=== PATIENT | female | born 1980 | race Caucasian/White ===

== ENCOUNTER → 2023-12-09 08:06 | Outpatient (REF) | payer OTHER, SELFPAY | LOC: WDC 08:06 | PROVIDERS: ATTENDING PHYSICIAN Nurse Practitioner Family | DX: Z12.31 Encounter for screening mammogram for malignant neoplasm of breast (principal) | CPT/HCPCS: 77063; 77067 ==

== ENCOUNTER → 2024-12-11 07:24 | Outpatient (REF) | payer OTHER, SELFPAY | LOC: WDC 07:24 | PROVIDERS: ATTENDING PHYSICIAN Nurse Practitioner Family | DX: Z12.31 Encounter for screening mammogram for malignant neoplasm of breast (principal); Z12.39 Encounter for other screening for malignant neoplasm of breast | CPT/HCPCS: 77063; 77067 ==

== ENCOUNTER 2024-12-19 19:02 | Outpatient (RCR) | payer OTHER, SELFPAY | END 2024-12-19 23:59 | disposition home or self-care (01) | LOC: RPT 19:02 | PROVIDERS: ATTENDING PHYSICIAN Physician Assistant Surgical; FAMILY PHYSICIAN Nurse Practitioner Family | DX: M76.62 Achilles tendinitis, left leg (principal); M77.52 Other enthesopathy of left foot and ankle; Z73.6 Limitation of activities due to disability; R26.2 Difficulty in walking, not elsewhere classified; M62.81 Muscle weakness (generalized) | CPT/HCPCS: 97110; 97112; 97140; 97161; 97530 ==

== ENCOUNTER 2025-01-18 18:04 | Outpatient (RCR) | payer OTHER, SELFPAY | END 2025-01-18 23:59 | disposition home or self-care (01) | LOC: RPT 18:04 | PROVIDERS: ATTENDING PHYSICIAN Physician Assistant Surgical; FAMILY PHYSICIAN Nurse Practitioner Family | DX: M76.62 Achilles tendinitis, left leg (principal); M77.52 Other enthesopathy of left foot and ankle; Z73.6 Limitation of activities due to disability; R26.2 Difficulty in walking, not elsewhere classified; M62.81 Muscle weakness (generalized) | CPT/HCPCS: 97110; 97112; 97140; 97530 ==

== ENCOUNTER 2025-02-06 18:00 | Outpatient (RCR) | payer OTHER, SELFPAY | END 2025-02-06 23:59 | disposition home or self-care (01) | LOC: RPT 18:00 | PROVIDERS: ATTENDING PHYSICIAN Physician Assistant Surgical; FAMILY PHYSICIAN Nurse Practitioner Family | DX: M76.62 Achilles tendinitis, left leg (principal); M77.52 Other enthesopathy of left foot and ankle; Z73.6 Limitation of activities due to disability; R26.2 Difficulty in walking, not elsewhere classified; M62.81 Muscle weakness (generalized) | CPT/HCPCS: 97110; 97112; 97140; 97530 ==

== ENCOUNTER 2025-03-22 17:00 | Outpatient (RCR) | payer OTHER, SELFPAY | END 2025-03-22 18:07 | disposition home or self-care (01) | LOC: RPT 17:00 | PROVIDERS: ATTENDING PHYSICIAN Physician Assistant Surgical; FAMILY PHYSICIAN Nurse Practitioner Family | DX: M76.62 Achilles tendinitis, left leg (principal); M77.52 Other enthesopathy of left foot and ankle; Z73.6 Limitation of activities due to disability; R26.2 Difficulty in walking, not elsewhere classified; M62.81 Muscle weakness (generalized) | CPT/HCPCS: 97110; 97112; 97140; 97530 ==